=== PATIENT | male | born 1960 | race Caucasian/White ===

== ENCOUNTER 2017-09-14 12:58 | Observation (INO) ==
--- NOTE | 2017-09-14 13:48 | Emergency Department Note ---
Disposition Clinical Impression: Shortness of breath Chest pain Qualifiers: Chest pain type: unspecified Qualified Code(s): R07.9 - Chest pain, unspecified Disposition: Admitted As Inpatient Condition: Good Forms: ED Satisfaction Letter Time of Disposition: 15:23 General Adult HPI - General Chief complaint: ED Chest Pain Stated complaint: CP/SOB Time Seen by Provider: 09/14/17 13:04 Source: patient Limitations: no limitations Nursing Notes Reviewed: Yes Vital Signs Reviewed: Yes - History of Present Illness HPI Narrative: Patient is a 57-year-old male that presents to the emergency department with chest pain and shortness of breath. He states that this has been ongoing for the past couple months but has worsened over the past couple of days. He states that he feels like it is a pressure located over the center to left side of his chest that radiates into his left arm and neck and shoulder. He states that he has had some associated shortness of breath and diaphoresis. Denies any nausea. He states that his pain is approximately a 6 out of 10. Patient denies any home oxygen use. Patient states that he has never had anything like this before. Patient states that he just feels like he cannot catch his breath. Pain Scale: 6 - Related Data Home Medications Medication Instructions Recorded Confirmed Amlodipine Besylate [Amlodipine 10 mg PO DAILY 09/14/17 09/14/17 Besylate] Aspirin Enteric Coated [Aspirin EC] 81 mg PO DAILY 09/14/17 09/14/17 Lisinopril [Zestril] 40 mg PO DAILY 09/14/17 09/14/17 Metoprolol [Lopressor] 100 mg PO QAM 09/14/17 09/14/17 Metoprolol [Lopressor] 150 mg PO QPM 09/14/17 09/14/17 Pravastatin Sodium [Pravachol] 40 mg PO HS 09/14/17 09/14/17 Allergies Allergy/AdvReac Type Severity Reaction Status Date / Time No Known Allergies Allergy Verified 07/18/16 12:57 All systems ED: reviewed and negative except as stated. Cardiovascular: Reports: chest pain Respiratory: Reports: cough, dyspnea Past Medical History - Past Medical History Medical history: Reports: hyperlipidemia, hypertension, migraine Psychiatric history: Reports: no psych history - Social History Smoking Status: Current every day smoker Alcohol use: Reports: rarely Drug use: Reports: none Physical Exam - General Limitations: no limitations General appearance: alert, in no apparent distress - Head Head exam: atraumatic, normocephalic - Eye Eye exam: Present: normal appearance, EOMI - Neck Neck exam: Present: normal inspection, full ROM, trachea midline - Respiratory Respiratory exam: Present: normal lung sounds bilaterally. Absent: respiratory distress, wheezes - Cardiovascular Cardiovascular exam: Present: regular rate, irregular rhythm, normal heart sounds, +S1, +S2 - Abdominal Exam Abdominal exam: Present: soft, Non-Tender, normal bowel sounds - Neurological Exam Neurological exam: Present: alert, oriented X3 - Psychiatric Psychiatric exam: Present: normal affect, normal mood - Skin Skin exam: Present: warm, dry, intact Course Vital Signs Temperature 98.2 F 09/14/17 13:17 Pulse Rate 101 09/14/17 13:17 Respiratory Rate 18 09/14/17 13:17 Blood Pressure 133/106 09/14/17 13:17 O2 Sat by Pulse Oximetry 97 09/14/17 13:17 Temperature 98.2 F 09/14/17 13:17 Pulse Rate 101 09/14/17 13:17 Respiratory Rate 18 09/14/17 13:17 Blood Pressure 133/106 09/14/17 13:17 O2 Sat by Pulse Oximetry 96 09/14/17 14:04 Oxygen Delivery Oxygen Delivery Nasal Cannula Medical Decision Making - [facility] Narrative Medical decision making narrative: The patient having chest pain shortness of breath we will obtain a cardiac workup including CBC, BMP, BNP, troponin, chest x-ray and EKG. patient had an elevated BNP of 247. The remainder of his laboratory testing was unremarkable. His troponin was negative. His chest x-ray showed no acute cardiopulmonary process. Due to the patient having chest pain and risk factors for coronary artery disease the patient be admitted for ACS rule out. The patient has a heart score of 4. I have called and spoke to the hospitalist and they have accepted the patient to their service. The patient will be admitted to the hospital at this time for further evaluation and management. - Lab Data Lab results reviewed: Yes I reviewed the patient's lab results. Result diagrams: 09/14/17 13:35 09/14/17 13:35 Lab Results 09/14/17 09/14/17 09/14/17 Range/Units 13:35 13:35 13:35 WBC 9.6 (4.3-11.1) K/mcL RBC 4.48 (4.19-5.50) M/mcL Hgb 14.4 (12.9-16.9) g/dL Hct 43.7 (37.5-50.1) % MCV 97.5 (83.0-100.0) fL MCH 32.1 (28.0-33.3) pg MCHC 33.0 (31.6-35.5) g/dL RDW 13.6 (11.5-14.5) % Plt Count 210 (140-400) K/mcL MPV 9.3 L (9.4-12.4) fL Immature Gran % 0.3 (0-4) % Seg Neutrophils % 66.5 % Lymphocytes % 21.0 % Monocytes % 9.4 % Eosinophils % 2.5 % Basophils % 0.3 % Neutrophils # 6.4 (1.6-8.9) K/mcL Lymphocytes # 2.0 (0.6-4.6) K/mcL Monocytes # 0.9 (0.0-1.3) K/mcL Eosinophils # 0.2 (0.0-0.6) K/mcL Basophils # 0.0 (0.0-0.2) K/mcL Sodium 140 (136-145) mEq/L Potassium 4.4 (3.5-5.1) mEq/L Chloride 106 (98-107) mEq/L Carbon Dioxide 29 (23-29) mEq/L BUN 11 (6-20) mg/dL Creatinine 0.89 (0.70-1.30) mg/dL Est GFR ( Amer) > 60 (> 60) Est GFR (Non-Af Amer) > 60 (> 60) BUN/Creatinine Ratio 12 (6-26) Glucose 98 (70-105) mg/dL Calculated Osmolality 289 (280-300) Calcium 9.2 (8.6-10.3) mg/dL Troponin I (< 0.04) ng/mL B-Natriuretic Peptide 247 H (Less than 100) pg/mL 09/14/17 Range/Units 13:35 WBC (4.3-11.1) K/mcL RBC (4.19-5.50) M/mcL Hgb (12.9-16.9) g/dL Hct (37.5-50.1) % MCV (83.0-100.0) fL MCH (28.0-33.3) pg MCHC (31.6-35.5) g/dL RDW (11.5-14.5) % Plt Count (140-400) K/mcL MPV (9.4-12.4) fL Immature Gran % (0-4) % Seg Neutrophils % % Lymphocytes % % Monocytes % % Eosinophils % % Basophils % % Neutrophils # (1.6-8.9) K/mcL Lymphocytes # (0.6-4.6) K/mcL Monocytes # (0.0-1.3) K/mcL Eosinophils # (0.0-0.6) K/mcL Basophils # (0.0-0.2) K/mcL Sodium (136-145) mEq/L Potassium (3.5-5.1) mEq/L Chloride (98-107) mEq/L Carbon Dioxide (23-29) mEq/L BUN (6-20) mg/dL Creatinine (0.70-1.30) mg/dL Est GFR ( Amer) (> 60) Est GFR (Non-Af Amer) (> 60) BUN/Creatinine Ratio (6-26) Glucose (70-105) mg/dL Calculated Osmolality (280-300) Calcium (8.6-10.3) mg/dL Troponin I < 0.03 (< 0.04) ng/mL B-Natriuretic Peptide (Less than 100) pg/mL - Radiology Data Radiology results reviewed: Yes I reviewed the patient's radiology results. Chest X-Ray 09/14/17 13:21 IMPRESSION: No acute cardiopulmonary process. D/ / 09/14/2017 13:47:50 [facility]ung Howard [facility] Interpreting Provider: Trung Howard MD - EKG Data EKG #1 EKG attestation: Yes I reviewed and interpreted this EKG. EKG results narrative: EKG showed a lot of artifact making it difficult to determine the rhythm. 97 bpm, QRS duration of 102, QTC of 432 with a normal axis. There is no STEMI noted on this EKG. Previous EKG from 07/27/13 showed a sinus rhythm at 71 bpm. EKG will be repeated. EKG #2 EKG attestation: Yes I reviewed and interpreted this EKG. EKG results narrative: Second EKG at 1428 showed a sinus rhythm at a rate of 72 bpm, QRS duration at 127, QTC at 442 with a normal axis.
[2017-09-14 13:53] LABS: Basophils % 0.3 %; Eosinophils # 0.2 K/mcL (0.0-0.6); Eosinophils % 2.5 %; Hematocrit 43.7 % (37.5-50.1); Hemoglobin 14.4 g/dL (12.9-16.9); Immature Granulocytes % 0.3 % (0-4); Mean Corpuscular Hemoglobin 32.1 pg (28.0-33.3); Mean Corpuscular Volume 97.5 fL (83.0-100.0); Mean Platelet Volume 9.3 fL (9.4-12.4); Monocytes # 0.9 K/mcL (0.0-1.3); Monocytes % 9.4 %; Neutrophils # 6.4 K/mcL (1.6-8.9); Platelet Count 210 K/mcL (140-400); Red Blood Count 4.48 M/mcL (4.19-5.50); Red Cell Distribution Width 13.6 % (11.5-14.5); Segmented Neutrophils % 66.5 %
[2017-09-14 14:01] LABS: BUN/Creatinine Ratio 12 (6-26); Blood Urea Nitrogen 11 mg/dL (6-20); Calcium 9.2 mg/dL (8.6-10.3); Carbon Dioxide 29 mEq/L (23-29); Chloride 106 mEq/L (98-107); Glucose 98 mg/dL (70-105); Osmolality,Calculated 289 (280-300); Potassium 4.4 mEq/L (3.5-5.1); Sodium 140 mEq/L (136-145); eGFR For African Americans > 60 (> 60); eGFR For Non-African Americans > 60 (> 60)
--- NOTE | 2017-09-14 14:36 | Emergency Department Note ---
START Narrative - START START: I examined this patient and my medical decision-making was reviewed with the Resident Physician. I agree with the documented findings, disposition and treatment plan as described except to the extent set forth below. 57-year-old male presents emergency room for chest pressure. EKG is difficult to read but does appear to have a normal sinus rhythm with some questionable PACs present. There is no corresponding QRS complex to that. Labs are otherwise unremarkable. Patient need be admitted for further chest pain observation and workup. She has never had a cardiac catheter before. He had a stress test done around for 5 years ago.
[2017-09-14] MEDS ORDERED: *HR* Morphine 2 MG/ML SYRINGE IVP PRN (17:42)
[2017-09-14] MEDS ORDERED: Naloxone 0.4 MG/ML INJ IVP PRN (17:42)
--- NOTE | 2017-09-14 17:49 | Internal Med History&Physical ---
Date of Encounter: 09/14/17 Time of Encounter: 17:46 Assessment and Plan (1) Chest pain Current visit: Yes Status: Acute 57/male Multiple comorbid issues. Admitted with chest pain. FAUSTO: 3. Plan: Admit as observation. Aspirin/metoprolol/pravastatin Cardiac diet for now Nothing by mouth from midnight Cycle troponin Echocardiogram If 3 troponins negative and echocardiogram within normal limit then please consider stress test. Of note: I examined this patient in the emergency room #8. Patient's family at bedside. Plan of care explained to the patient and family members. Qualifiers: Chest pain type: unspecified Qualified Code(s): R07.9 - Chest pain, unspecified (2) Shortness of breath Current visit: Yes Status: Acute See above (3) Hypertension Current visit: Yes Status: Acute Presently on amlodipine/metoprolol. I have prescribed evening dose of metoprolol. Morning dose of metoprolol is on hold. Qualifiers: Hypertension type: essential hypertension Qualified Code(s): I10 - Essential (primary) hypertension (4) Hyperlipidemia Current visit: Yes Status: Acute Presently on medications for elevated lipids. We will recheck lipids tomorrow morning Qualifiers: Hyperlipidemia type: unspecified Qualified Code(s): E78.5 - Hyperlipidemia , unspecified (5) DVT prophylaxis Current visit: Yes Status: Acute SCD Critical decision making: This patient has a moderate to severe degree of risk due to the underlying complex medical conditions Internal Medicine - H&P: HPI Chief complaint: Chest pain Admitted From: Emergency Dept Plans for Post Hospital Care: Home History of present illness: PCP; DES Acosta PMH: HTN, Hyperlipidemia HPI: Patient claims that patient has this ongoing chest pain for past 2 months. But in the last 72 hours this chest pain was really worsened. Patient feels that there is a more of a chest pressure along with the chest pain. Patient also claims that the pain is retrosternal and it radiates to his jaw as well as the left shoulder. Patient has shortness of breath occasionally along with few times nausea with the chest pain. Patient denies abdominal pain, and vomiting, diarrhea and dizziness. In view of this worsening chest pain patient decided to come to the emergency room for further workup. Workup in the emergency room: Patient was evaluated in the emergency room. Basic labs were drawn. CBC was unremarkable. First troponin negative. Electrolytes and renal function were within the normal limit. EKG was within the acceptable range. Reason for admission: Chest pain to rule out acute coronary syndrome. Family history: Noncontributory Past Med Surg Social Fam HX - Past Medical History Medical history: hyperlipidemia, hypertension, migraine Psychiatric history: no psych history - Social History Smoking Status: Current every day smoker Packs per day: 0.5 Smokeless Tobacco Status: No Alcohol use: rarely Drug use: none - Family History Mother Family Member Ethnicity: Non- Age at : 53 Hx Family Cardiac Disorders: Yes Hx Family Endocrine Disorder: Yes Internal Medicine - H&P: Meds Amlodipine Besylate [Amlodipine Besylate] 10 mg PO DAILY 09/14/17 [History] Aspirin Enteric Coated [Aspirin EC] 81 mg PO DAILY 09/14/17 [History] Lisinopril [Zestril] 40 mg PO DAILY 09/14/17 [History] Metoprolol [Lopressor] 100 mg PO QAM 09/14/17 [History] Metoprolol [Lopressor] 150 mg PO QPM 09/14/17 [History] Pravastatin Sodium [Pravachol] 40 mg PO HS 09/14/17 [History] 3 Allergy/AdvReac Type Severity Reaction Status Date / Time No Known Allergies Allergy Verified 07/18/16 12:57 All Systems PM: A 10-system review of systems was performed and is negative for pertinent findings except as documented above in the HPI. - Constitutional Constitutional: no chills, no fever(s), no night sweats - EENT Eyes: no change in vision, no discharge, no pain, no photophobia Ears: no ear discharge, no ear pain, no tinnitus Nose, mouth and throat: no dysphagia, no nasal discharge, no neck pain, no sore throat - Cardiovascular Cardiovascular ROS IM: chest pain, lightheadedness, palpitations, no diaphoresis , no dyspnea, no syncope - Respiratory Respiratory: no cough, no dyspnea, no wheezing, no excessive phlegm production - Gastrointestinal Gastrointestinal: no abdominal pain, no diarrhea, no hematemesis, no hematochezia, no melena, no nausea, no vomiting - Musculoskeletal Musculoskeletal ROS IM: no numbness, no tingling - Integumentary Integumentary IM: no rash, no unusual bruising - Neurological Neurological ROS: no confusion, no convulsions, no focal weakness, no numbness, no tingling, no tremor(s) - Hematologic/Lymphatic Hematologic/Lymphatic: no easy bruising - Constitutional Vitals: Temp Pulse Resp BP Pulse Ox 98.2 F 89 20 114/67 95 09/14/17 17:05 09/14/17 17:05 09/14/17 17:05 09/14/17 17:05 09/14/17 17:05 General appearance: Present: A&O X 3, pleasant, no acute distress, answers questions appropriately - Head Head exam: Present: atraumatic, normocephalic - Eye Eye exam: Present: PERRL, conjuntiva pink, sclera anicteric Pupils: Present: PERRL - Neck Neck exam general surgery: Present: supple, trachea midline. Absent: lymphadenopathy - Respiratory Respiratory exam: Present: CTAB. Absent: accessory muscle use, rales, rhonchi, wheezes - Cardiovascular Cardiovascular exam: Present: RRR, +S1, +S2. Absent: diastolic murmur, gallop, rubs, systolic murmur - GI/Abdominal GI/Abdominal exam: Present: normal bowel sounds, soft, no peritoneal signs. Absent: distended, tenderness - Extremities Exam Extremities exam: Present: warm, radial pulses palpable and symmetrical. Absent : calf tenderness, cyanotic, pedal edema - Neurological Exam Neurological exam: Present: CN II-XII intact, oriented X3, no focal deficits. Absent: pronater drift, facial droop, speech deficit - Skin Skin exam: Present: dry, intact Internal Med - H&P Results - Labs CBC & Chem 7: 09/14/17 13:35 09/14/17 13:35
[2017-09-14] MEDS ORDERED: Metoprolol 100 MG TABLET PO SCH (18:00)
[2017-09-14] MEDS ORDERED: Albuterol 2.5 MG/3 ML NEBULIZER IH ONE (20:09)
[2017-09-15 00:25] LABS: Basophils % 0.3 %; Eosinophils # 0.3 K/mcL (0.0-0.6); Eosinophils % 2.9 %; Hematocrit 41.5 % (37.5-50.1); Hemoglobin 13.7 g/dL (12.9-16.9); Immature Granulocytes % 0.2 % (0-4); Lymphocytes # 2.7 K/mcL (0.6-4.6); Lymphocytes % 28.9 %; Mean Corpuscular Hemoglobin 32.3 pg (28.0-33.3); Mean Corpuscular Volume 97.9 fL (83.0-100.0); Monocytes % 10.5 %; Neutrophils # 5.3 K/mcL (1.6-8.9); Platelet Count 198 K/mcL (140-400); Red Blood Count 4.24 M/mcL (4.19-5.50); Red Cell Distribution Width 13.8 % (11.5-14.5); Segmented Neutrophils % 57.2 %
[2017-09-15 00:31] LABS: INR 1.1; Prothrombin Time 11.8 Seconds (9.4-12.1)
[2017-09-15 00:33] LABS: Activated Partial Thrombo Time 32.8 Seconds (26.0-36.0)
[2017-09-15 00:45] LABS: Alanine Aminotransferase 14 Units/L (7-52); Albumin 3.8 g/dL (3.5-5.7); Albumin/Globulin Ratio 1.2 (1.1-2.2); Alkaline Phosphatase 64 Units/L (34-104); Aspartate Amino Transferase 14 Units/L (13-39); BUN/Creatinine Ratio 18 (6-26); Bilirubin,Total 0.3 mg/dL (0.3-1.0); Blood Urea Nitrogen 17 mg/dL (6-20); Calcium 9.3 mg/dL (8.6-10.3); Carbon Dioxide 27 mEq/L (23-29); Chloride 104 mEq/L (98-107); Chol/HDL Ratio 4.8 (0-4.9); Cholesterol 174 mg/dL (< 200); Globulin 3.1 g/dL (2.4-3.5); Glucose 97 mg/dL (70-105); HDL Cholesterol 36 mg/dL (40-59); LDL Cholesterol,Calculated 99 mg/dL (0-99); Magnesium 1.9 mg/dL (1.6-2.6); Osmolality,Calculated 287 (280-300); Potassium 4.2 mEq/L (3.5-5.1); Sodium 138 mEq/L (136-145); Total Protein 6.9 g/dL (6.4-8.9); Triglycerides 193 mg/dL (< 150); eGFR For African Americans > 60 (> 60); eGFR For Non-African Americans > 60 (> 60)
[2017-09-15] MEDS ORDERED: Perflutren Lipid Microsphere 1.3 ML in 0.9 % Sodium Chloride 8.7 ML IVP ONE (07:32)
--- NOTE | 2017-09-15 07:39 | Electrocardiograph Report ---
[facility] Test Date: 2017-09-14 Pat Name: Aric Luz Department: 102 Room: Gender: M Porter Sample Case: : 1960 Requested By: Sánchez Higginbotham Order Number: [id number] Reading MD: Maryann Hair DO Measurements Intervals [place] Rate: 97 P: MS: 0 QRS: 17 QRSD: 102 T: 60 QT: 377 QTc: 432 Interpretive Statements ATRIAL FLUTTER/TACHYCARDIA NONSPECIFIC T-WAVE ABNORMALITY ABNORMAL RHYTHM ECG Electronically Signed On 09-15-2017 7:37:27 EST by Maryann Hair DO
--- NOTE | 2017-09-15 07:39 | Electrocardiograph Report ---
[place] [employer] [facility] Test Date: 2017-09-14 Pat Name: Aric Luz Department: 104 Room: Gender: M Computer Systems Security Administrator: : 1960 Requested By: Gerard Vanessa Order Number: [id number] Reading MD: Maryann Hair DO Measurements Intervals [place] Rate: 72 P: [place]: 0 QRS: 57 QRSD: 127 T: 22 QT: 417 QTc: 442 Interpretive Statements ATRIAL FLUTTER/TACHYCARDIA MODERATE INTRAVENTRICULAR CONDUCTION DELAY [110+ ms QRS DURATION] MINIMAL ST DEPRESSION [0.025+ mV ST DEPRESSION] ABNORMAL RHYTHM ECG Electronically Signed On 09-15-2017 7:38:19 EST by Maryann Hair DO
[2017-09-15] MEDS: Lisinopril 20 MG TABLET PO SCH (08:45)
[2017-09-15] MEDS: amLODIPine 5 MG TABLET PO SCH (08:45)
[2017-09-15] MEDS: Aspirin Enteric Coated 81 MG Tablet PO SCH (08:45)
[2017-09-15] MEDS ORDERED: Regadenoson 0.4 MG/5 ML SYRINGE IVP ONE (09:28)
[2017-09-15] MEDS: Metoprolol 100 MG TABLET PO SCH (09:44)
--- NOTE | 2017-09-15 18:23 | Internal Med Progress Note ---
Date of Encounter: 09/15/17 Time of Encounter: 12:05 - Assessment and plan (1) Nicotine use disorder Current Visit: Yes Status: Acute Assessment and plan: Patient reports that he is at least a one half pack per day smoker. We discussed smoking cessation. We will continue to educate and encourage smoking cessation prior to discharge. (2) Atrial fibrillation Current Visit: Yes Status: Acute Assessment and plan: Psoas prior history of atrial fibrillation. Rate controlled with beta alva. He was mildly tachycardic this morning his beta alva was held last night due to hypotension and bradycardia. This morning he was not rate controlled. It was given and he was taken to stress test. Continue telemetry and continue to monitor pulse. He denied any chest pain. Qualifiers: Atrial fibrillation type: paroxysmal Qualified Code(s): I48.0 - Paroxysmal atrial fibrillation (3) Chest pain Current Visit: Yes Status: Acute Assessment and plan: Patient reports chest pain for the last 2 months, worse for approximately 72 hours prior to arrival. Patient with prior history of paroxysmal A. fib on a beta alva. He takes an aspirin as well as a statin. Patient reports that he is always short of breath prior to the onset of chest pain. 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 He reports the sensation as feeling like a "ball bat to the chest." Patient does have wheezing in posterior lung corrales. The pain is not reproducible with deep inspiration or palpation. He does not have dyspnea on exertion. Echocardiogram shows LVEF of 60%, Definity contrast was used due to body habitus there is no significant valvular dysfunction. Patient's chest x- ray was negative. Troponins were negative. Continue telemetry Stress test will be completed tomorrow. Nitroglycerin aspirin for chest pain. Consider cardiology consult based on results of test. Qualifiers: Chest pain type: unspecified Qualified Code(s): R07.9 - Chest pain, unspecified (4) Shortness of breath Current Visit: Yes Status: Acute Assessment and plan: See above. (5) Hypertension Current Visit: Yes Status: Acute Assessment and plan: Chronic. Well controlled in the hospital. Continue home medications. Qualifiers: Hypertension type: essential hypertension Qualified Code(s): I10 - Essential (primary) hypertension (6) Hyperlipidemia Current Visit: Yes Status: Acute Assessment and plan: Chronic. Continue home medications. Qualifiers: Hyperlipidemia type: unspecified Qualified Code(s): E78.5 - Hyperlipidemia , unspecified (7) DVT prophylaxis Current Visit: Yes Status: Acute Assessment and plan: Patient is ambulatory. Encourage early ambulation. - Time Spent With Patient less than 15 minutes - Subjective Interval history: Patient was seen and assessed at bedside at 1205. Multiple family members at bedside. Patient reports that his chest pain feels like someone "took a ball bat to his chest." He reports shortness of breath. Onset 2 months ago, worse Thursday night. Patient reports shortness of breath which causes chest pain. He reiterates that shortness of breath is always before the chest pain. He is a smoker. We have discussed smoking cessation. He is a 2 day stress test and is aware that he will not be completed until tomorrow. He denies any headache, nausea, vomiting, chest pain at this time. He denies abdominal pain, nausea vomiting or diarrhea. - Constitutional Vitals: Temp Pulse Resp BP Pulse Ox 98.4 F 80 20 108/74 96 09/15/17 15:17 09/15/17 15:17 09/15/17 15:17 09/15/17 15:17 09/15/17 15:17 General appearance: Present: cooperative, A&O X 3, morbidly obese, pleasant, no acute distress, answers questions appropriately. Absent: mild distress - Head Head exam: Present: atraumatic, normal inspection, normocephalic - Eye Eye exam: Present: normal appearance, conjuntiva pink, sclera anicteric - Neck Neck exam general surgery: Present: supple, trachea midline. Absent: lymphadenopathy, normal inspection, tenderness - Respiratory Respiratory exam: Present: decreased breath sounds, wheezes. Absent: accessory muscle use, chest wall tenderness, CTAB, rales, rhonchi - Cardiovascular Cardiovascular exam: Present: RRR, +S1, +S2. Absent: diastolic murmur, gallop, rubs, systolic murmur - GI/Abdominal GI/Abdominal exam: Present: normal bowel sounds, soft. Absent: distended, hepatomegaly, tenderness - Extremities Exam Extremities exam: Present: normal capillary refill, normal inspection, warm, radial pulses palpable and symmetrical. Absent: calf tenderness, cyanotic, pedal edema, tenderness - Neurological Exam Neurological exam: Present: alert, oriented X3, no focal deficits. Absent: facial droop, speech deficit - Skin Skin exam: Present: dry, intact, normal color, warm. Absent: rash Internal Medicine: Result - Labs CBC & Chem 7: 09/15/17 00:18 09/15/17 00:18 Labs: Short CBC 09/15/17 Range/Units 00:18 WBC 9.3 (4.3-11.1) K/mcL Hgb 13.7 (12.9-16.9) g/dL Hct 41.5 (37.5-50.1) % Plt Count 198 (140-400) K/mcL Neutrophils # 5.3 (1.6-8.9) K/mcL BMP 09/15/17 00:18 Sodium 138 Potassium 4.2 Chloride 104 Carbon Dioxide 27 BUN 17 Creatinine 0.95 Glucose 97 Calcium 9.3 Cardiac Enzymes 09/14/17 09/15/17 09/15/17 Range/Units 18:10 00:18 05:16 Troponin I < 0.03 < 0.03 < 0.03 (< 0.04) ng/mL Liver Function 09/15/17 Range/Units 00:18 Total Bilirubin 0.3 (0.3-1.0) mg/dL AST 14 (13-39) Units/L ALT 14 (7-52) Units/L Alkaline Phosphatase 64 (34-104) Units/L Albumin 3.8 (3.5-5.7) g/dL - ABG Interpretation ABG results: PT/INR, D-dimer PT 11.8 Seconds (9.4-12.1) 09/15/17 00:18 - Impressions Impressions Echocardiogram 09/15/17 17:44 Impressions: LVEF 60%. Indeterminate diastolic function. Definity echo contrast was used. Dilated RV with normal function. No significant valvular dysfunction. No pulmonary hypertension. Left Ventricular Wall Motion: Rest Echo Findings All wall segments showed normal motion. Findings: Study Quality * Technically sub-optimal due to body habitus. ECG Findings * Atrial fibrillation. Left Ventricle * LVEF 60%. * Indeterminate diastolic function. * Definity echo contrast was used. * Normal LV size. * Wall thickness measurements could not be well obtained. Right Ventricle * Dilated RV with normal function. Left Atrium * Mildly dilated left atrium. Right Atrium * Right atrium is not well visualized. Aortic Valve * No aortic regurgitation. * No aortic stenosis. * Aortic valve not well visualized. Mitral Valve * No mitral regurgitation. * Normal mitral valve structure. * No mitral stenosis. Tricuspid Valve * Tricuspid valve not well visualized. * Trace tricuspid regurgitation. * Estimated RA pressure is 3 mmHg. * Estimated RVSP is 10 mmHg. * No pulmonary hypertension. Pulmonic Valve * Pulmonic valve is not well visualized. * No pulmonic stenosis. * No pulmonic regurgitation. Pulmonary Artery * Pulmonary artery not well visualized. Aorta * Normally sized aortic root. * Ascending aorta is not well visualized. Pericardium * There is no pericardial effusion present. Interatrial Septum * No evidence of PFO by color Doppler. IVC * Normal IVC dimensions and inspiratory collapse. Consult Discharge Plan - Plan Referrals: Zhanna Hennessy CNP [Primary Care Provider] -
[2017-09-16] MEDS: Aspirin Enteric Coated 81 MG Tablet PO SCH (09:05)
[2017-09-16] MEDS: Lisinopril 20 MG TABLET PO SCH (09:05)
[2017-09-16] MEDS: Metoprolol 100 MG TABLET PO SCH (09:05)
[2017-09-16] MEDS: amLODIPine 5 MG TABLET PO SCH (09:05)
--- NOTE | 2017-09-16 15:04 | Cardiology Consult Note ---
Date of Encounter: 09/16/17 Time of Encounter: 15:05 Assessment and Plan (1) Chest pain Current Visit: Yes Status: Acute Symptoms correlate most likely with his stable angina. However, patient is currently having dyspnea and chest pain while at rest. This is concerning for the development of unstable angina. Troponins are within normal limits, electrocardiogram does not reveal any new ischemic changes. Chest x-ray does not reveal any abnormalities. BNP was mildly elevated, but echo reveals ejection fraction of 60% without any wall motion abnormalities. Stress test reveals inferior wall ischemia. Plan for heart catheterization tomorrow morning. Patient and were agreeable with the plan. Qualifiers: Chest pain type: unspecified Qualified Code(s): R07.9 - Chest pain, unspecified Discussion w patient/family: The assessment and plan as outlined above was discussed with the patient and/or family members who expressed understanding and agreement. All questions were answered. Thank you for involving us in the care of your patient. Please call with any questions. History of Present Illness Consult date: 09/16/17 Requesting physician: Carolina Anderson Consult reason: abnormal stress test Chief complaint: chest pain History of present illness: Mr. Luz is a 57 year old male past medical history of hyperlipidemia, hypertension, smoking who we were consulted on secondary to an abnormal stress test. Patient states that he has been having worsening shortness of breath and chest pain on exertion over the last few months. Patient states that over the weekend he was presents no office vehicle and experienced severe episode of dyspnea and chest pain. Patient states that he feels as if there was a constant pressure and tightness radiating across his chest. Patient stated that the episodes take about 5-10 minutes to resolve. On Thursday, patient was complaining of having the same type of chest pain while at rest. Patient has not experienced any chest pain since. Past Med Surg Social Fam HX - Past Medical History Medical history: hyperlipidemia, hypertension, migraine Psychiatric history: no psych history - Social History Smoking Status: Current every day smoker Packs per day: 0.5 Smokeless Tobacco Status: No Alcohol use: rarely Drug use: none - Family History Mother Family Member Ethnicity: Non- Age at : 53 Hx Family Cardiac Disorders: Yes Hx Family Endocrine Disorder: Yes Medications and Allergies Amlodipine Besylate [Amlodipine Besylate] 10 mg PO DAILY 09/14/17 [History] Aspirin Enteric Coated [Aspirin EC] 81 mg PO DAILY 09/14/17 [History] Lisinopril [Zestril] 40 mg PO DAILY 09/14/17 [History] Metoprolol [Lopressor] 100 mg PO QAM 09/14/17 [History] Metoprolol [Lopressor] 150 mg PO QPM 09/14/17 [History] Pravastatin Sodium [Pravachol] 40 mg PO HS 09/14/17 [History] 3 Allergy/AdvReac Type Severity Reaction Status Date / Time No Known Allergies Allergy Verified 07/18/16 12:57 All Systems Review: A 10-system review of systems was performed and is negative for pertinent findings except as documented above in the HPI. - Cardiovascular Cardiovascular: chest pain at rest, chest pain with exertion, dyspnea at rest, dyspnea on exertion, no syncope - Respiratory Respiratory: no cough, no dyspnea, no hemoptysis - Gastrointestinal Gastrointestinal: no abdominal pain Physical Examination Vital Signs, Last 4 Hours Temp Pulse Resp BP Pulse Ox 09/16/17 11:39 117/75 09/16/17 11:25 97.5 F L 70 16 92/48 96 General: Conversant, No Apparent Distress HEENT: Atraumatic, Normocephaly Neck: No JVD Cardiac: Normal S1 and S2, Other (regular rate) Lungs: Normal Breath Sounds, No Wheeze, Rales, Rhonchi Neuro: Alert and responsive, No focal deficits noted Abdomen: Soft, Non-Tender Skin: No rashes noted on visualized skin Musculoskeletal: No Chest Wall Tenderness Extremities: No Edema, Normal Pulses Results 09/15/17 00:18 09/15/17 00:18 Consult Discharge Plan - Plan Referrals: Zhanna Hennessy CNP [Primary Care Provider] - 09/17/17 1:15 pm
[2017-09-16] MEDS ORDERED: Verapamil 5 MG/2 ML VIAL ONE (15:56)
[2017-09-16] MEDS ORDERED: *HR* Heparin 10,000 UNIT/10 ML VIAL ONE (15:57)
[2017-09-16] MEDS ORDERED: 0.9 % Sodium Chloride 1,000 ML ONE (15:57)
[2017-09-16] MEDS ORDERED: Nitroglycerin 1,000 MCG/10 ML VIAL IV ONE (15:57)
[2017-09-16] MEDS ORDERED: Heparin 1,000 UNITS/500 mL 0 ML ONE (15:57)
--- NOTE | 2017-09-16 16:21 | Internal Med Progress Note ---
Date of Encounter: 09/16/17 Time of Encounter: 08:50 - Assessment and plan (1) Nicotine use disorder Current Visit: Yes Status: Acute Assessment and plan: Patient reports that he is at least a one half pack per day smoker. We discussed smoking cessation. I have continued to educate and encourage smoking cessation prior to discharge. Patient is reluctant to try patches and gum. He reports prior suicidal ideations with Chantix. States he has not tried Wellbutrin, we will discuss tomorrow after LHC and prior to discharge. (2) Atrial fibrillation Current Visit: Yes Status: Acute Assessment and plan: prior history of atrial fibrillation. Rate controlled with beta alva. He denied any chest pain. Qualifiers: Atrial fibrillation type: paroxysmal Qualified Code(s): I48.0 - Paroxysmal atrial fibrillation (3) Chest pain Current Visit: Yes Status: Acute Assessment and plan: Patient reports chest pain for the last 2 months, worse for approximately 72 hours prior to arrival. Patient with prior history of paroxysmal A. fib on a beta alva. He takes an aspirin as well as a statin. Patient reports that he is always short of breath prior to the onset of chest pain. 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 He reports the sensation as feeling like a "ball bat to the chest." Lungs are clear and diminished. The pain is not reproducible with deep inspiration or palpation. He does not have dyspnea on exertion. Echocardiogram shows LVEF of 60%, Definity contrast was used due to body habitus there is no significant valvular dysfunction. Patient's chest x-ray was negative. Troponins were negative. Patient with 2 day stress test showed possible mild ischemia in the inferior wall with a gated EF of 60%. Cardiology was consult dated, patient will have C in the morning. Continue telemetry Nitroglycerin aspirin for chest pain. I will hCG tomorrow Qualifiers: Chest pain type: unspecified Qualified Code(s): R07.9 - Chest pain, unspecified (4) Shortness of breath Current Visit: Yes Status: Acute Assessment and plan: Plan as above. (5) Hypertension Current Visit: Yes Status: Acute Assessment and plan: Chronic. Well controlled in the hospital. Continue home medications. Qualifiers: Hypertension type: essential hypertension Qualified Code(s): I10 - Essential (primary) hypertension (6) Hyperlipidemia Current Visit: Yes Status: Acute Assessment and plan: Chronic. Continue home medications. Triglycerides mildly elevated. Implement lifestyle changes. Qualifiers: Hyperlipidemia type: unspecified Qualified Code(s): E78.5 - Hyperlipidemia , unspecified (7) DVT prophylaxis Current Visit: Yes Status: Acute Assessment and plan: Patient is ambulatory. Encourage early ambulation. - Time Spent With Patient less than 15 minutes - Subjective Interval history: Patient was seen and assessed at bedside at 0850. He denies any headache, nausea, vomiting, chest pain at this time. He denies abdominal pain, nausea vomiting or diarrhea. Patient is aware of abnormal stress test, he has been seen by cardiology and will have LH see tomorrow. Multiple questions have been answered. is at bedside. He denies a chest pain at all since arrival. - Constitutional Vitals: Temp Pulse Resp BP Pulse Ox 97.3 F L 71 18 115/75 94 09/16/17 15:54 09/16/17 15:54 09/16/17 15:54 09/16/17 15:54 09/16/17 15:54 General appearance: Present: cooperative, A&O X 3, morbidly obese, pleasant, no acute distress, answers questions appropriately. Absent: mild distress - Head Head exam: Present: atraumatic, normal inspection, normocephalic - Eye Eye exam: Present: normal appearance, conjuntiva pink, sclera anicteric - Neck Neck exam general surgery: Present: supple, trachea midline. Absent: lymphadenopathy - Respiratory Respiratory exam: Present: decreased breath sounds, CTAB. Absent: accessory muscle use, chest wall tenderness, rales, respiratory distress, rhonchi, wheezes - Cardiovascular Cardiovascular exam: Present: RRR, +S1, +S2. Absent: diastolic murmur, gallop, rubs, systolic murmur - GI/Abdominal GI/Abdominal exam: Present: normal bowel sounds, soft, no peritoneal signs. Absent: distended, hepatomegaly, tenderness - Extremities Exam Extremities exam: Present: normal capillary refill, normal inspection, warm, radial pulses palpable and symmetrical. Absent: calf tenderness, cyanotic, pedal edema, tenderness - Neurological Exam Neurological exam: Present: alert, oriented X3, no focal deficits. Absent: altered, facial droop, speech deficit - Skin Skin exam: Present: dry, intact, normal color, warm. Absent: rash Internal Medicine: Result - Labs CBC & Chem 7: 09/15/17 00:18 09/15/17 00:18 - ABG Interpretation ABG results: PT/INR, D-dimer PT 11.8 Seconds (9.4-12.1) 09/15/17 00:18 Consult Discharge Plan - Plan Referrals: Zhanna Hennessy CNP [Primary Care Provider] - 09/17/17 1:15 pm
[2017-09-17] MEDS ORDERED: 0.9 % Sodium Chloride 1,000 ML ONE ×2 (08:27→08:56)
[2017-09-17] MEDS ORDERED: Heparin 1,000 UNITS/500 mL 500 ML ONE (08:28)
[2017-09-17] MEDS ORDERED: *HR* Heparin 10,000 UNIT/10 ML VIAL ONE (08:28)
[2017-09-17] MEDS: Lisinopril 20 MG TABLET PO SCH (08:28)
[2017-09-17] MEDS: Aspirin Enteric Coated 81 MG Tablet PO SCH (08:28)
[2017-09-17] MEDS: Metoprolol 100 MG TABLET PO SCH (08:28)
[2017-09-17] MEDS ORDERED: Nitroglycerin 1,000 MCG/10 ML VIAL IV ONE (08:28)
[2017-09-17] MEDS: amLODIPine 5 MG TABLET PO SCH (08:28)
[2017-09-17] MEDS ORDERED: *HR* Midazolam HCl 5 MG/5 ML VIAL IVP ONE (08:56)
[2017-09-17] MEDS ORDERED: *HR* FentaNYL (PF) 100 MCG/2 ML VIAL ONE (08:56)
--- NOTE | 2017-09-17 09:22 | Pre-Sedation Evaluation ---
Pre-sedation evaluation - Pre-sedation checklist Date of procedure: 09/17/17 Procedure: [facility] Recent Vitals: Last Vital Signs Temp 98 F 09/17/17 07:29 Pulse 82 09/17/17 07:29 Resp 16 09/17/17 07:29 BP 120/80 09/17/17 07:29 Pulse Ox 94 09/17/17 07:29 H&P (including ROS) documented in medical record: Yes Previous reaction to sedatives/anesthetics: No Dietary Status: NPO after Midnight Airway Assessment: Patient can open mouth completely, TMJ function normal Dentition: No loose teeth or bridges Possible difficult airway: No ASA Classification *see protocol: CLASS IV-Severe systemic disease/constant threat to pt's life Plan of Care: Pt appropriate candidate for procedure/moderate/conscious sedation , Risks/benefits of procedure/sedation discussed w/ patient/family, If not NPO; Risk of intake outweiged by necessity to perform procedure
--- NOTE | 2017-09-17 09:55 | Event Note ---
Date of Encounter: 09/17/17 Time of Encounter: 09:50 - Cardiology Event Note Interventional Cardiology [facility] - trivial CAD, smaller LAD, larger OM1 and OM2, most likely cause of abnormal stress imaging, LV normaL EF 65% REC: risk factor modification, medical tx Taye Radford DO
--- NOTE | 2017-09-17 10:01 | Invasive Diagnostic Lab Proc ---
Name: Aric Luz Date of Study: 09/17/2017 Date: 1960 Ht: 72.8in Medical Record#: [id number] Age: 57 Wt: 335.10lb Gender: Male BSA: 2.68 Order #: [id number] BMI: 44.41 Physicians Procedure Physician: Aiden Cisneros MD, [facility] Referring MD: Referring MD: Staff Name Position Time In Virginia Rosales RN Monitor 09:02 AM Heri Ferraro RT (R) Scrub 09:03 AM Jules Ness RN Wired Music Operator 09:03 AM Indications Indication Abnormal Test - Stress Procedures Performed Procedure L HRT ARTERY/VENTRICLE ANGIO Pre-Procedure Checklist Informed consent is complete signed and on chart. H&P is on chart. ID band is on and ID verified with patient. Patient NPO for procedure The procedure was described for the patient and questions were answered. Blood Pressure: 117/75 ECG is on chart. Rhythm: NSR Plan of Care Patient will tolerate the procedure without complications. Adequate level of comfort will be maintained. Hemodynamics will remain stable Patient will recover from procedure without complications. Respiratory function will be maintained. Cardiac rhythm will remain stable. Patient temperature will be maintained. Patient and/or family have verbalized understanding of the procedure. Patient Education Chief Complaint/Reason for Test: Cardiac Cath Developmental Category: Adult (18-64 years) Developmentally Appropriate for Age: Yes Learning Barriers: None Education Needs: Procedure Education Method: Verbal Information Taught: Cardiac Cath Educational Evaluation: Able to repeat information Intravenous Access Time IV Size Location DC'd Fluid/Drip Rate Units RN 09:20 AM 20g 1 1/" Patent On Arrival Lt Antecubital 0.9NaCl 50 ml/hr Jules Ness RN Allergies No Known Allergies Vital Signs Time BP (mmHg) HR (bpm) O2 Sat. RR (bpm) LOC 07:43 AM 117 / 75 70 96 % 17 5 = Fully awake and oriented or at pre-proc level 09:14 AM / % 5 = Fully awake and oriented or at pre-proc level 09:14 AM / % 4 = Oriented but drowsy 09:30 AM / % 5 = Fully awake and oriented or at pre-proc level 09:15 AM 129 / 90 68 97 % 15 09:20 AM 131 / 80 69 97 % 21 09:25 AM 120 / 83 62 98 % 10 09:30 AM 125 / 85 65 99 % 9 09:35 AM 124 / 84 61 99 % 11 09:40 AM 123 / 84 64 97 % 20 09:45 AM 128 / 81 65 97 % 15 Procedural Medications Time Medication Dose Units Method Given By 09:09 AM Oxygen 2 L/min nasal cannula Jules Ness RN 09:14 AM Versed 2 mg Intravenous Jules Ness RN 09:33 AM Lidocaine 2% 10 ml Subcutaneous Aiden Cisneros MD, [facility] ASA Classification: CLASS IV- Severe systemic that is constant threat to patient's life Sebastián Score Preprocedure Postprocedure Activity 2- Moves 4 extremities sustained head lift Activity 2- Moves 4 extremities sustained head lift Circulation 2- SBP +/= 20 points of pre-anesthetic level Circulation 2- SBP +/= 20 points of pre-anesthetic level Consciousness 2- Awake and alert oriented x 3 Consciousness 2- Awake and alert oriented x 3 O2 Saturation 2- Able to maintain O2 satruation of 92% on room air O2 Saturation 2- Able to maintain O2 satruation of 92% on room air Respiratory 2- Able to deep breathe and cough well Respiratory 2- Able to deep breathe and cough well Total Score 10 Total Score 10 Contrast Agent: Isovue Diagnostic Contrast: 75 ml Total Contrast: 75 ml Fluoro Dose: 310 mGy Procedure Log Time Note Enter By 09:02 AM Pt arrived to bobcat driver/labor 2 at 09:02 mmolvin 09:02 AM Virginia Rosales RN Position: Monitor Time in: 09:02 angela 09:03 AM Heri Ferraro RT (R) Position: Scrub Time in: 09:03 angela 09:03 AM Jules Ness RN Position: Wired Music Operator Time in: 09:03 angela 09:03 AM Case Delayed No mm 09:05 AM Gautam paged/called 09:05. [email or web address] 09:05 AM Gautam responded and notified patient is ready 09:05 [email or web address] 09:09 AM Physician arrived 09:09 angela 09:09 AM Procedure start 09:09 mmolvin 09:09 AM Meet and greet completed mm 09:09 AM Sign in performed according to hospital policy. [email or web address] AM Patient charges- Angio tray pack, Navilyst 3mm J, Pulse Oximetry and ACIST tubing and transducer [facility] 09[facility]10 AM Time: 09:09 Oxygen on at 2 L/min per nasal cannula by Jules Ness RN 09:10 AM CathStat 09:10 AM Case Start 09:14 AM Time: 09:14 Versed 2 mg Intravenous Given by Jules Ness RN 09:14 AM Time: 09:14 Patient comfortable and pain free: Yes elizabeth 09:14 AM Time: 09:14LOC: 5 = Fully awake and oriented or at pre-proc level [email or web address] 09:15 AM Clinical Presentation: Unstable angina [facility] 09:15 AM Vitals capture started with the following parameters, Patient=Adult, Interval=5 min, Initial Frslzrpc=382 mmHg, Deflation Rate=5 mmHg, Cuff placed on Left Arm 09:15 AM HR=68 bpm, KTSM=814/90 mmhg, SpO2=97.0 %, Resp=15 B/min, Comment=SR 09:16 AM Recorded ECG: HR=67 Condition=Condition 1 09:20 AM HR=69 bpm, GRPL=068/80 mmhg, SpO2=97.0 %, Resp=21 B/min, Comment=SR 09:22 AM Pressure channel 1 zeroed. 09:25 AM HR=62 bpm, BEIS=081/83 mmhg, SpO2=98.0 %, Resp=10 B/min, Comment=SR 09:30 AM Time: 09:14LOC: 4 = Oriented but drowsy elizabeth 09:30 AM Time: 09:14 Patient comfortable and pain free: Yes [facility] 09:30 AM HR=65 bpm, OMIE=173/85 mmhg, SpO2=99.0 %, Resp=9 B/min, Comment=SR 09:33 AM Time out performed according to hospital policy [facility] 09:33 AM Time: 09:33 10 ml Lidocaine 2% to right groin Subcutaneous Given by Aiden Cisneros MD, [facility] mm 09:34 AM Micro-Introducer Kit utilized for sheath placement tsolvin 09:35 AM HR=61 bpm, DDHP=679/84 mmhg, SpO2=99.0 %, Resp=11 B/min, Comment=SR 09:37 AM Access obtained by percutaneous puncture. 6Fr 10cm Terumo [place] sheath placed in right Femoral artery. [id number] mm 09:37 AM 0.035 145cm Navilyst 3mmJ wire [id number] 09:37 AM 6Fr FR 4 catheter inserted over the wire [facility] 09:37 AM Catheter selectively placed in left ventricle tsoumm 09:37 AM Recorded Pressure: LV, HR=69, Condition=Condition 1 (Left Ventricle) LV 98/30/14 09:38 AM Recorded Pressure: LV, Ao, HR=78, Condition=Condition 1 (Left Ventricle) LV 97/-2/9, (Aorta) Ao 105/52/81 09:38 AM Recorded Pressure: Ao, HR=64, Condition=Condition 1 (Aorta) Ao 91/58/72 09:38 AM Bolus angiogram of left Ventricle complete: hand injection 09:38 AM RCA angiography performed in multiple views. 09:39 AM Catheter removed 09:39 AM 6Fr FL 4 catheter inserted over the wire [facility] 09:39 AM Wire removed 09:39 AM Recorded Pressure: Ao, HR=64, Condition=Condition 1 (Aorta) Ao 104/67/83 09:39 AM LCA angiography performed in multiple views. 09:40 AM HR=64 bpm, LMJM=501/84 mmhg, SpO2=97.0 %, Resp=20 B/min, Comment=SR 09:41 AM Catheter removed 09:41 AM Coronary Dominance: Co-dominant 09:42 AM Bolus angiogram of right Femoral complete: hand injection 09:43 AM Procedure completed at 09:43 [facility] 09:45 AM Time: 09:30 Patient comfortable and pain free: mm 09:45 AM Time: 09:30LOC: 5 = Fully awake and oriented or at pre-proc level tsoumm 09:45 AM Sign out completed: Radiation Dose 309.86 mGy Fluoro Time: 1.1 Isovue 370 - 200ml contrast 75 ml given by Aiden Cisneros MD, [facility]. Complications: NoneCardiac Rehab Consult needed: NoConfirmed administered medications: Yes mm 09:45 AM HR=65 bpm, GGAQ=935/81 mmhg, SpO2=97.0 %, Resp=15 B/min, Comment=SR 09:45 AM Isovue 370 - 200ml,1 Bottle(s) used. tsoummers 09:46 AM Arterial sheath pulled, Mynx closure device used and was Successful [id number] S/N. tsoummers 09:46 AM Estimated Blood Loss: minimal tsoummers 09:46 AM Post ECG NSR tsoummers 09:48 AM Post Blood Pressure 128/81 tsoummers 09:48 AM Information taught Cardiac Cath tsoummers 09:48 AM Education needs Procedure, Plan of Care, Responsibilities of Patient in Care, and Diet tsoummers 09:48 AM Learning barriers :None tsoummers 09:48 AM Education Methods Verbal oummers 09:48 AM Education evaluation Able to repeat information tsoummers 09:48 AM Site status No bleeding/hematoma - Rt Groin as reported by Heri Ferraro RT (R) at 09:48 tsoummers 09:48 AM Opsite applied tsoummers 09:48 AM Plavix, Effient or Brilinta given No tsoummers 09:48 AM Delay to floor No tsoummers 09:49 AM Family placed in consult room. [email or web address] 09:49 AM Complications: None tsoummers 09:49 AM Fluoro Time: 1.1 tsoummers 09:49 AM Isovue 370 - 200ml contrast 75 ml given by Aiden Cisneros MD, [facility]. tsoummers 09:49 AM Radiation Dose 309.86 mGy oummers 09:52 AM Report given to Mary Ellen HILARIO Pt taken to Room #48. 09:52 tsoummers 09:52 AM Patient out of room: 09:52 tsoummers 09:54 AM ASA Class CLASS IV- Severe systemic that is constant threat to patient's life tsoummers Complications Complication None Hemodynamics Pressures Site Systolic/A Wave Diastolic/V Wave Mean LV 98 30 14 LV 97 -2 9 AO 105 52 81 AO 91 58 72 AO 104 67 83 Post Procedure Information Blood Pressure: 128/81 mmHg Rhythm: NSR Post procedural instructions were given Closure Device Time Device Success/Fail 09/17/2017 9:46:00 AM MynxGrip Successful Site Checks Time Location Status Staff Sheath In? Note 09:48 AM Rt Groin No bleeding/hematoma Heri Ferraro RT (R) Pulses Time Site Pre-Procedure Post-Procedure Note 09/17/2017 7:42:00 AM Bilateral DP & PT 2+ 09/17/2017 7:42:00 AM Bilateral radial 2+ Updated by Virginia Rosales RN on 09/17/2017 9:55:40 AM electronically signed on 09/17/2017 9:56:23 AM with status of Final
--- NOTE | 2017-09-17 10:09 | Invasive Diagnostic Lab Proc ---
Name: Aric Luz Date of Study: 09/17/2017 Date: 1960 Ht: 72.8in Medical Record#: [id number] Age: 57 Wt: 335.10lb Gender: Male BSA: 2.68 Order #: [id number] BMI: 44.41 Physicians Procedure Physician: Taye Radford DO Referring MD: Referring MD: Staff Name Position Time In Virginia Rosales RN Monitor 09:02 AM Heri Ferraro RT (R) Scrub 09:03 AM Jules Ness RN Rn Hemodialysis 09:03 AM Indications Indication Abnormal Test - Stress Procedures Performed Procedure L HRT ARTERY/VENTRICLE ANGIO Pre-Procedure Checklist Informed consent is complete signed and on chart. H&P is on chart. ID band is on and ID verified with patient. Patient NPO for procedure The procedure was described for the patient and questions were answered. Blood Pressure: 117/75 ECG is on chart. Rhythm: NSR Plan of Care Patient will tolerate the procedure without complications. Adequate level of comfort will be maintained. Hemodynamics will remain stable Patient will recover from procedure without complications. Respiratory function will be maintained. Cardiac rhythm will remain stable. Patient temperature will be maintained. Patient and/or family have verbalized understanding of the procedure. Patient Education Chief Complaint/Reason for Test: Cardiac Cath Developmental Category: Adult (18-64 years) Developmentally Appropriate for Age: Yes Learning Barriers: None Education Needs: Procedure Education Method: Verbal Information Taught: Cardiac Cath Educational Evaluation: Able to repeat information Intravenous Access Time IV Size Location DC'd Fluid/Drip Rate Units RN 09:20 AM 20g 1 1/" Patent On Arrival Lt Antecubital 0.9NaCl 50 ml/hr Jules Ness RN Allergies No Known Allergies Vital Signs Time BP (mmHg) HR (bpm) O2 Sat. RR (bpm) LOC 07:43 AM 117 / 75 70 96 % 17 5 = Fully awake and oriented or at pre-proc level 09:14 AM / % 5 = Fully awake and oriented or at pre-proc level 09:14 AM / % 4 = Oriented but drowsy 09:30 AM / % 5 = Fully awake and oriented or at pre-proc level 09:15 AM 129 / 90 68 97 % 15 09:20 AM 131 / 80 69 97 % 21 09:25 AM 120 / 83 62 98 % 10 09:30 AM 125 / 85 65 99 % 9 09:35 AM 124 / 84 61 99 % 11 09:40 AM 123 / 84 64 97 % 20 09:45 AM 128 / 81 65 97 % 15 Procedural Medications Time Medication Dose Units Method Given By 09:09 AM Oxygen 2 L/min nasal cannula Jules Ness RN 09:14 AM Versed 2 mg Intravenous Jules Ness RN 09:33 AM Lidocaine 2% 10 ml Subcutaneous Prabhakar Taye 10:00 AM Versed 1 mg Intravenous Jules Ness RN ASA Classification: CLASS IV- Severe systemic that is constant threat to patient's life Sebastián Score Preprocedure Postprocedure Activity 2- Moves 4 extremities sustained head lift Activity 2- Moves 4 extremities sustained head lift Circulation 2- SBP +/= 20 points of pre-anesthetic level Circulation 2- SBP +/= 20 points of pre-anesthetic level Consciousness 2- Awake and alert oriented x 3 Consciousness 2- Awake and alert oriented x 3 O2 Saturation 2- Able to maintain O2 satruation of 92% on room air O2 Saturation 2- Able to maintain O2 satruation of 92% on room air Respiratory 2- Able to deep breathe and cough well Respiratory 2- Able to deep breathe and cough well Total Score 10 Total Score 10 Contrast Agent: Isovue Diagnostic Contrast: 75 ml Total Contrast: 75 ml Fluoro Dose: 310 mGy Procedure Log Time Note Enter By 09:02 AM Pt arrived to rd lab technician 2 at 09[email or web address] [facility] 09[facility]02 AM Virginia Rosales RN Position: Monitor Time in: 09:02 olvin 09:03 AM Heri Ferraro RT (R) Position: Scrub Time in: 09:03 mm 09:03 AM Jules Ness RN Position: Rn Hemodialysis Time in: 09:03 mmolvin 09:03 AM Case Delayed No oumm 09:05 AM Gautam paged/called 09:05. oumm 09:05 AM Gautam responded and notified patient is ready 09:05 oumm 09:09 AM Physician arrived 09:09 elizabeth 09:09 AM Procedure start 09:[address] [facility] 09[facility]09 AM Meet and greet completed 09:09 AM Sign in performed according to hospital policy. [email or web address] 09:09 AM Patient charges- Angio tray pack, Navilyst 3mm J, Pulse Oximetry and ACIST tubing and transducer [email or web address] 09:10 AM Time: 09:09 Oxygen on at 2 L/min per nasal cannula by Jules Ness RN 09:10 AM CathStat 09:10 AM Case Start 09:14 AM Time: 09:14 Versed 2 mg Intravenous Given by Jules Ness RN 09:14 AM Time: 09:14 Patient comfortable and pain free: Yes angela 09:14 AM Time: 09:14LOC: 5 = Fully awake and oriented or at pre-proc level ouelizabeth 09:15 AM Clinical Presentation: Unstable angina olvin 09:15 AM Vitals capture started with the following parameters, Patient=Adult, Interval=5 min, Initial Virrjpez=709 mmHg, Deflation Rate=5 mmHg, Cuff placed on Left Arm 09:15 AM HR=68 bpm, JMNG=064/90 mmhg, SpO2=97.0 %, Resp=15 B/min, Comment=SR 09:16 AM Recorded ECG: HR=67 Condition=Condition 1 09:20 AM HR=69 bpm, DCNH=274/80 mmhg, SpO2=97.0 %, Resp=21 B/min, Comment=SR 09:22 AM Pressure channel 1 zeroed. 09:25 AM HR=62 bpm, HRSZ=922/83 mmhg, SpO2=98.0 %, Resp=10 B/min, Comment=SR 09:30 AM Time: 09:14LOC: 4 = Oriented but drowsy angela 09:30 AM Time: 09:14 Patient comfortable and pain free: Yes elizabeth 09:30 AM HR=65 bpm, XKNZ=116/85 mmhg, SpO2=99.0 %, Resp=9 B/min, Comment=SR 09:33 AM Time out performed according to hospital policy olvin 09:33 AM Time: 09:33 10 ml Lidocaine 2% to right groin Subcutaneous Given by Taye Radford DO elizabeth 09:34 AM Micro-Introducer Kit utilized for sheath placement ouelizabeth 09:35 AM HR=61 bpm, ADCD=221/84 mmhg, SpO2=99.0 %, Resp=11 B/min, Comment=SR 09:37 AM Access obtained by percutaneous puncture. 6Fr 10cm Terumo [place] sheath placed in right Femoral artery. [id number] mm 09:37 AM 0.035 145cm Navilyst 3mmJ wire [id number] 09:37 AM 6Fr FR 4 catheter inserted over the wire [facility] 09:37 AM Catheter selectively placed in left ventricle [email or web address] 09:37 AM Recorded Pressure: LV, HR=69, Condition=Condition 1 (Left Ventricle) LV 98/30/14 09:38 AM Recorded Pressure: LV, Ao, HR=78, Condition=Condition 1 (Left Ventricle) LV 97/-2/9, (Aorta) Ao 105/52/81 09:38 AM Recorded Pressure: Ao, HR=64, Condition=Condition 1 (Aorta) Ao 91/58/72 09:38 AM Bolus angiogram of left Ventricle complete: hand injection mm 09:38 AM RCA angiography performed in multiple views. tsmm 09:39 AM Catheter removed 09:39 AM 6Fr FL 4 catheter inserted over the wire C mm 09:39 AM Wire removed 09:39 AM Recorded Pressure: Ao, HR=64, Condition=Condition 1 (Aorta) Ao 104/67/83 09:39 AM LCA angiography performed in multiple views. 09:40 AM Time: 09:40 Versed 1 mg Intravenous Given by Jules Ness RN [email or web address] 09:40 AM HR=64 bpm, GERG=265/84 mmhg, SpO2=97.0 %, Resp=20 B/min, Comment=SR 09:41 AM Catheter removed 09:41 AM Coronary Dominance: Co-dominant [email or web address] 09:42 AM Bolus angiogram of right Femoral complete: hand injection mmolvin 09:43 AM Procedure completed at 09:43 [facility] 09:45 AM Time: 09:30 Patient comfortable and pain free: mm 09:45 AM Time: 09:30LOC: 5 = Fully awake and oriented or at pre-proc level [email or web address] 09:45 AM Sign out completed: Radiation Dose 309.86 mGy Fluoro Time: 1.1 Isovue 370 - 200ml contrast 75 ml given by Aiden Cisneros MD, FACC. Complications: NoneCardiac Rehab Consult needed: NoConfirmed administered medications: Yes tsoummers 09:45 AM HR=65 bpm, RGMU=083/81 mmhg, SpO2=97.0 %, Resp=15 B/min, Comment=SR 09:45 AM Isovue 370 - 200ml,1 Bottle(s) used. tsoummers 09:46 AM Arterial sheath pulled, Mynx closure device used and was Successful [id number] S/N. tsoummers 09:46 AM Estimated Blood Loss: minimal tsoummers 09:46 AM Post ECG NSR tsoummers 09:48 AM Post Blood Pressure 128/81 tsoummers 09:48 AM Information taught Cardiac Cath tsoummers 09:48 AM Education needs Procedure, Plan of Care, Responsibilities of Patient in Care, and Diet tsoummers 09:48 AM Learning barriers :None tsoummers 09:48 AM Education Methods Verbal tsoummers 09:48 AM Education evaluation Able to repeat information tsoummers 09:48 AM Site status No bleeding/hematoma - Rt Groin as reported by Heri Ferraro RT (R) at 09:48 tsoummers 09:48 AM Opsite applied tsoummers 09:48 AM Plavix, Effient or Brilinta given No tsoummers 09:48 AM Delay to floor No tsoummers 09:49 AM Family placed in consult room. tsoummers 09:49 AM Complications: None tsoummers 09:49 AM Fluoro Time: 1.1 tsoummers 09:49 AM Isovue 370 - 200ml contrast 75 ml given by Aiden Cisneros MD, FACC. tsoummers 09:49 AM Radiation Dose 309.86 mGy tsoummers 09:52 AM Report given to Mary Ellen HILARIO Pt taken to 3B Room #48. 09:52 tsoummers 09:52 AM Patient out of room: 09:52 tsoummers 09:54 AM ASA Class CLASS IV- Severe systemic that is constant threat to patient's life tsoummers Complications Complication None Hemodynamics Pressures Site Systolic/A Wave Diastolic/V Wave Mean LV 98 30 14 LV 97 -2 9 AO 105 52 81 AO 91 58 72 AO 104 67 83 Post Procedure Information Blood Pressure: 128/81 mmHg Rhythm: NSR Post procedural instructions were given Closure Device Time Device Success/Fail 09/17/2017 9:46:00 AM MynxGrip Successful Site Checks Time Location Status Staff Sheath In? Note 09:48 AM Rt Groin No bleeding/hematoma Heri Ferraro RT (R) Pulses Time Site Pre-Procedure Post-Procedure Note 09/17/2017 7:42:00 AM Bilateral DP & PT 2+ 09/17/2017 7:42:00 AM Bilateral radial 2+ Updated by Virginia Rosales RN on 09/17/2017 10:03:48 AM electronically signed on 09/17/2017 10:05:38 AM with status of Final
--- NOTE | 2017-09-17 12:47 | Event Note ---
Date of Encounter: 09/17/17 Time of Encounter: 12:47 - Cardiology Event Note [facility] report normal coronaries, further details in Dr. Radford note below. Cardiology signing off. Reconsult PRN. No cardiology outpt follow-up is needed.
[2017-09-17 15:33] VITALS: BP 121/76
--- NOTE | 2017-09-17 16:19 | Discharge Summary ---
Date of Encounter: 09/17/17 Time of Encounter: 16:05 - Discharge Diagnosis (1) Chest pain Priority: Primary Status: Acute Comments: Patient reports chest pain for the last 2 months, worse for approximately 72 hours prior to arrival. Patient with prior history of paroxysmal A. fib on a beta alva. He takes an aspirin as well as a statin. Patient reports that he is always short of breath prior to the onset of chest pain. 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 He reports the sensation as feeling like a "ball bat to the chest." Lungs are clear and diminished. He denies any new cough, chest congestion, URI symptoms. The pain is not reproducible with deep inspiration or palpation. He does not have dyspnea on exertion. Echocardiogram shows LVEF of 60%, Definity contrast was used due to body habitus there is no significant valvular dysfunction. Patient's chest x-ray was negative. Troponins were negative. Patient with 2 day stress test showed possible mild ischemia in the inferior wall with a gated EF of 60%. Cardiology was consult dated, patient will have LHC in the morning. Patient had LHC today, coronary arteries are angiographically normal, LV normal with contract to the EF of 65%. Patient denies need for refills on his medications. He will continue his normal home medications including beta alva. I recommend the patient follow-up with his primary care provider as scheduled in 11 days. Recommend pulmonary function test as well as respiratory workup to assess for COPD. Chest pain occurs after shortness of breath. It is reasonable to assume that this is respiratory in nature. Qualifiers: Chest pain type: unspecified Qualified Code(s): R07.9 - Chest pain, unspecified (2) Nicotine use disorder Priority: Secondary Status: Acute Comments: Patient reports that he is at least a one half pack per day smoker. We discussed smoking cessation. I have continued to educate and encourage smoking cessation up to discharge. Patient is reluctant to try patches and gum. He reports prior suicidal ideations with Chantix. Denies need for nicotine replacement therapy at discharge. (3) Atrial fibrillation Priority: Secondary Status: Acute Comments: Paroxysmal A. fib. Rate control with beta alva. Patient denies chest pain since arrival. Qualifiers: Atrial fibrillation type: paroxysmal Qualified Code(s): I48.0 - Paroxysmal atrial fibrillation (4) Shortness of breath Priority: Secondary Status: Acute Comments: Plan as above for chest pain. (5) Hypertension Priority: Secondary Status: Acute Comments: Chronic. Continue home medications. Qualifiers: Hypertension type: essential hypertension Qualified Code(s): I10 - Essential (primary) hypertension (6) Hyperlipidemia Priority: Secondary Status: Acute Comments: Chronic. Continue home medications. Qualifiers: Hyperlipidemia type: unspecified Qualified Code(s): E78.5 - Hyperlipidemia , unspecified (7) DVT prophylaxis Priority: Secondary Status: Acute Comments: Patient was ambulatory in room and hallway. - Discharge Medications Home Medications: Amlodipine Besylate 10 mg PO DAILY 09/14/17 [History] Aspirin Enteric Coated [Aspirin EC] 81 mg PO DAILY 09/14/17 [History] Lisinopril [Zestril] 40 mg PO DAILY 09/14/17 [History] Metoprolol [Lopressor] 100 mg PO QAM 09/14/17 [History] Metoprolol [Lopressor] 150 mg PO QPM 09/14/17 [History] Pravastatin Sodium [Pravachol] 40 mg PO HS 09/14/17 [History] Allergies/Adverse Reactions: 3 Allergy/AdvReac Type Severity Reaction Status Date / Time No Known Allergies Allergy Verified 07/18/16 12:57 Procedures/tests Complete & Pending: Procedures Performed prior 72 hours Category Date Time Status Left Heart Cath [CL Cardiac Catheterization] [CL] [employer] 09/16/17 18:16 Completed Routine NM vicente perf SPECT multi [NM] Routine Exams 09/15/17 09:00 Taken EV echocardiogram w enhance Routine Y 09/15/17 17:44 Completed SP pharm nuclear stress Routine Y 09/15/17 08:55 Completed Date of admission: 09/14/17 16:24 Primary care physician: Zhanna Hennessy CNP Consults: 09/16/17 12:08 Consult to Cardiology [CONS] Routine Comment: Consulting Provider: Cardiology Giovana Reason for Consult: abnormal stress Time Notified: 12:08 Call Completed: Yes Discharging clinician: Carolina Anderson Anticipated date of discharge: 09/17/17 - Patient Status Disposition: Home, Self-Care Condition: Good - Discharge Instructions Instructions: Chest Pain (DC), How to Stop Smoking (DC), Cigarette Smoking and Your Health (GEN) Follow Up With: Zhanna Hennessy CNP [Primary Care Provider] - 09/28/17 9:00 am Forms: Inpatient Work/School Release Additional Instructions: RISK FACTORS: STOP SMOKING: If you smoke, STOP. Smoking or tobacco use significantly increases your risk of heart disease because nicotine causes the arteries to narrow or constrict. It also causes fats to stick to the artery. Your chances of having a heart attack are greatly increased if you continue to smoke. For more information, call the education line for smoking cessation 9-445-EDOCBFB EAT A LOW FAT/CHOLESTEROL/SODIUM DIET: This diet may help reduce your chances of having a heart attack. LIFTING: Avoid lifting anything more than 10 pounds for 5-7 days Prior to straining, laughing, sneezing and/or coughing, apply manual pressure directly over insertion site. ACTIVITY: You may walk or climb stairs as tolerated You can resume sexual activity as tolerated In general, you are encouraged to engage in a minimum of 30 minutes or more of moderate intensity physical activity, such as brisk walking, daily or at least 3 -4 times weekly BATHING Do not submerge the site into water (bath tub, hot tub, swimming pool) for 1 week. This can be a source for infection into the blood stream. You may shower after 24 hours SITE CARE: After 24 hours, you may remove the dressing and leave the site open to air. Keep the site clean and dry. Clean gently and pat dry. You can expect bruising and tenderness that gradually resolve within a week or two. Return to work as instructed per your physician Resume driving as instructed per physician Keep all scheduled follow up appointments Resume medications as instructed IMPORTANT: If prescribed a Platelet Aggregation Inhibitor such as, Plavix, Brilinta or Effient: Duration of therapy is minimum one year These medications are often used in combination with Aspirin in prevention of future heart attacks Never discontinue unless consult with your Deck Hand STROKE (CVA) Risk factors for a stroke are: Age, cigarette smoking, diabetes, excessive alcohol consumption, family history, high blood pressure, overweight, physical inactivity, prior stroke, heart attack, diagnosis of carotid artery stenosis or other artery disease. Warning signs: Sudden numbness or weakness of the face, arm or leg; especially on one side of the body, sudden confusion, trouble speaking or understanding, sudden trouble seeing in one or both eyes, sudden trouble walking, dizziness, loss of balance or coordination, sudden severe headache with no cause. Call 911 or go to the Emergency Room. CONGESTIVE HEART FAILURE: If you have been diagnosed with Congestive Heart Failure (CHF) and your symptoms return, make an appointment with your physician Weigh yourself daily. Notify your physician if you have a weight gain of two or more pounds in one day or five or more pounds in one week. If you experience any difficulty breathing, please call 911 BLEEDING: Although the risk of bleeding is minimal, it can happen. If you have any bleeding from the site, apply firm pressure above the puncture site for 10-15 minutes. If the bleeding does not stop, continue manual pressure and call 911 Contact your physician if: You develop a fever greater than 101 degrees Fahrenheit Your site becomes reddened or has any drainage You have an increase in pain or burning at the site or if a large knot forms at the site. If you experience chest pain, shortness of breath, dizziness, or extreme tiredness, stop the activity and rest. Please notify your physicians office if you experience any of these symptoms and they are not relieved by rest please call 911! - Diet and Activity Activity: increase activity as tolerated Diet: diabetic diet, low fat, low cholesterol, low salt diet Hospital course: Mr. Luz is a 57 year old male with past medical history of obesity, hypertension, paroxysmal atrial fibrillation, smoking, and hyperlipidemia. He presented to the emergency room with recent history of patient becoming shortness of breath and having chest pain. 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 His lungs are clear and diminished throughout. He denies any recent cough, congestion, fever or chills. Patient had a full cardiac workup that was negative including stress test that was negative. Most likely, source of chest pain is respiratory in nature. Patient had a lengthy discussion about smoking cessation, he states that he is prepared for lifestyle modifications including weight loss and smoking cessation. His labs are stable and within normal limits , vitals are stable and within normal limits. He is pain-free. He may return to work in 4 days, he has a follow-up appointment with primary care in 11 days. He denies any need for home medication refills. Patient is appropriate for discharge. Time spent discussing smoking cessation with patient: 3 to 10 minutes - Time Spent with Patient Total time spent providing and/or coordinating discharge services: Less than 30 minutes - Constitutional Vitals: Temp Pulse Resp BP Pulse Ox 98.9 F 79 20 121/76 95 09/17/17 15:32 09/17/17 15:32 09/17/17 15:32 09/17/17 15:32 09/17/17 15:32 General appearance: Present: cooperative, A&O X 3, morbidly obese, pleasant, no acute distress, answers questions appropriately. Absent: mild distress - Head Head exam: Present: atraumatic, normal inspection, normocephalic - Eye Eye exam: Present: normal appearance, conjuntiva pink, sclera anicteric - Neck Neck exam general surgery: Present: supple, trachea midline. Absent: lymphadenopathy, tenderness - Respiratory Respiratory exam: Present: decreased breath sounds, CTAB. Absent: accessory muscle use, chest wall tenderness, rales, respiratory distress, rhonchi, wheezes - Cardiovascular Cardiovascular exam: Present: RRR, +S1, +S2. Absent: diastolic murmur, gallop, rubs, systolic murmur - GI/Abdominal GI/Abdominal exam: Present: distended, normal bowel sounds, soft. Absent: hepatomegaly, tenderness Additional comments: Abdomen distended due to obesity. - Extremities Exam Extremities exam: Present: normal capillary refill, normal inspection, warm, radial pulses palpable and symmetrical. Absent: calf tenderness, cyanotic, pedal edema, tenderness - Neurological Exam Neurological exam: Present: alert, oriented X3, no focal deficits. Absent: altered, motor sensory deficit, facial droop, speech deficit - Skin Skin exam: Present: dry, intact, normal color, warm. Absent: rash
== END 2017-09-17 16:46 | disposition home or self-care (01) ==
LOC: EMEROO 12:58 → 3BNU 12:58
PROVIDERS: ADMIT Registered Nurse; ATTEND Registered Nurse

== ENCOUNTER 2021-07-06 12:17 | Inpatient (IN) ==
[2021-07-06] MEDS ORDERED: 0.9 % Sodium Chloride 1,000 ML IVC ONE (12:47)
[2021-07-06 13:38] LABS: Calcium 13.2 mg/dL (8.6-10.3)
[2021-07-06 14:52] LABS: Alanine Aminotransferase 27 Units/L (7-52); Albumin 3.3 g/dL (3.5-5.7); Albumin/Globulin Ratio 1.3 (1.1-2.2); Alkaline Phosphatase 645 Units/L (34-104); Aspartate Amino Transferase 38 Units/L (13-39); BUN/Creatinine Ratio 21 (6-26); Bilirubin,Total 1.3 mg/dL (0.3-1.0); Blood Urea Nitrogen 26 mg/dL (6-20); Carbon Dioxide 20 mEq/L (23-29); Chloride 98 mEq/L (98-107); Globulin 2.5 g/dL (2.4-3.5); Glucose 92 mg/dL (70-105); Osmolality,Calculated 274 (280-300); Potassium 4.8 mEq/L (3.5-5.1); Sodium 130 mEq/L (136-145); Total Protein 5.8 g/dL (6.4-8.9); Troponin I 0.03 ng/mL (< 0.04); eGFR For African Americans > 60 (> 60); eGFR For Non-African Americans 59 (> 60)
[2021-07-06 15:04] LABS: Bilirubin,Urine Negative (Negative); Blood,Urine Negative (Negative); Clarity,Urine Clear (Clear); Color,Urine Yellow (Yellow); Glucose,Urine (UA) Normal (Normal); Ketones,Urine Negative (Negative); Leukocyte Esterase,Urine Negative (Negative); Nitrite,Urine Negative (Negative); PH,Urine 5.5 pH Units (5.0-8.0); Protein,Urine Trace mg/dL (Neg-Trace); Specific Gravity,Urine 1.022 (1.010-1.025)
[2021-07-06 15:06] LABS: Hematocrit 28.9 % (37.5-50.1); Hemoglobin 8.5 g/dL (12.9-16.9); Mean Corpuscular Volume 91.7 fL (83.0-100.0); Red Blood Count 3.15 M/mcL (4.19-5.50); White Blood Count 9.9 K/mcL (4.3-11.1)
[2021-07-06 15:07] LABS: Basophils % 0.1 %; Eosinophils # 0.1 K/mcL (0.0-0.6); Eosinophils % 0.5 %; Immature Granulocytes % 0.9 % (0-4); Lymphocytes # 0.5 K/mcL (0.6-4.6); Lymphocytes % 5.1 %; Mean Corpuscular HGB Conc 29.4 g/dL (31.6-35.5); Mean Platelet Volume 9.3 fL (9.4-12.4); Monocytes # 0.9 K/mcL (0.0-1.3); Monocytes % 9.5 %; Neutrophils # 8.3 K/mcL (1.6-8.9); Platelet Count 219 K/mcL (140-400); Red Cell Distribution Width 15.9 % (11.5-14.5); Segmented Neutrophils % 83.9 %
[2021-07-06 15:22] LABS: INR 1.2; Prothrombin Time 13.4 Seconds (9.4-12.1)
[2021-07-06] MEDS ORDERED: Zoledronic Acid (Zometa) 4 MG in 0.9 % Sodium Chloride 100 ML IV ONE (16:30)
[2021-07-06] MEDS ORDERED: Calcitonin-Salmon, Synthetic 400 UNIT/2 ML VIAL IM ONE (16:30)
[2021-07-06] MEDS ORDERED: Ondansetron 4 MG/2 ML VIAL IVP PRN (16:44)
[2021-07-06] MEDS ORDERED: Acetaminophen 325 MG TABLET PO PRN (16:44)
[2021-07-06 17:03] LABS: Magnesium 1.6 mg/dL (1.6-2.6)
[2021-07-06] MEDS ORDERED: Naloxone 0.4 MG/ML INJ IVP PRN (17:56)
[2021-07-06] MEDS ORDERED: Ipratropium/Albuterol Neb 3 ML IH PRN (18:11)
[2021-07-06] MEDS ORDERED: Ondansetron ODT 4 MG TAB.RAPDIS PO PRN (18:37)
[2021-07-06] MEDS: *HR* OxyCODONE Immed Rel 15 MG TABLET PO PRN (20:23)
[2021-07-06 23:22] LABS: BUN/Creatinine Ratio 22 (6-26); Blood Urea Nitrogen 25 mg/dL (6-20); Calcium 12.2 mg/dL (8.6-10.3); Carbon Dioxide 21 mEq/L (23-29); Chloride 101 mEq/L (98-107); Glucose 88 mg/dL (70-105); Osmolality,Calculated 276 (280-300); Potassium 4.7 mEq/L (3.5-5.1); Sodium 131 mEq/L (136-145); eGFR For African Americans > 60 (> 60); eGFR For Non-African Americans > 60 (> 60)
[2021-07-07 04:39] LABS: Hemoglobin 8.4 g/dL (12.9-16.9); Mean Corpuscular Hemoglobin 27.2 pg (28.0-33.3); Mean Corpuscular Volume 93.9 fL (83.0-100.0); Mean Platelet Volume 9.1 fL (9.4-12.4); Platelet Count 207 K/mcL (140-400); Red Blood Count 3.09 M/mcL (4.19-5.50); White Blood Count 9.4 K/mcL (4.3-11.1)
[2021-07-07 04:56] LABS: BUN/Creatinine Ratio 22 (6-26); Blood Urea Nitrogen 28 mg/dL (6-20); Calcium 12.2 mg/dL (8.6-10.3); Carbon Dioxide 21 mEq/L (23-29); Chloride 101 mEq/L (98-107); Glucose 89 mg/dL (70-105); Osmolality,Calculated 279 (280-300); Potassium 4.9 mEq/L (3.5-5.1); Sodium 132 mEq/L (136-145); eGFR For African Americans > 60 (> 60); eGFR For Non-African Americans 57 (> 60)
[2021-07-07 04:57] LABS: Magnesium 1.7 mg/dL (1.6-2.6)
[2021-07-07] MEDS ORDERED: Calcitonin-Salmon, Synthetic 400 UNIT/2 ML VIAL IM SCH (06:00)
[2021-07-07] MEDS ORDERED: 0.9 % Sodium Chloride 1,000 ML IV ONE ×2 (07:14→18:33)
[2021-07-07] MEDS ORDERED: Ringers Solution, Lactated 1,000 ML IVC SCH (07:15)
[2021-07-07] MEDS: *HR* Rivaroxaban 10 MG TABLET PO SCH (08:22)
[2021-07-07] MEDS: DilTIAZem CD (24hr) 240 MG CAP.ER.24H PO SCH (08:22)
[2021-07-07] MEDS: *HR* OxyCODONE Immed Rel 15 MG TABLET PO PRN (08:22)
[2021-07-07] MEDS: Calcitonin-Salmon, Synthetic 400 UNIT/2 ML VIAL IM SCH ×2 (08:23→22:56)
[2021-07-07 19:16] LABS: Calcium 11.8 mg/dL (8.6-10.3); Potassium 4.6 mEq/L (3.5-5.1)
[2021-07-08 02:32] LABS: Basophils % 0.1 %; Eosinophils # 0.1 K/mcL (0.0-0.6); Hematocrit 25.9 % (37.5-50.1); Hemoglobin 7.7 g/dL (12.9-16.9); Immature Granulocytes % 0.9 % (0-4); Lymphocytes # 0.5 K/mcL (0.6-4.6); Lymphocytes % 6.3 %; Mean Corpuscular HGB Conc 29.7 g/dL (31.6-35.5); Mean Corpuscular Hemoglobin 27.6 pg (28.0-33.3); Mean Corpuscular Volume 92.8 fL (83.0-100.0); Mean Platelet Volume 9.4 fL (9.4-12.4); Monocytes # 0.9 K/mcL (0.0-1.3); Monocytes % 9.8 %; Neutrophils # 7.1 K/mcL (1.6-8.9); Platelet Count 207 K/mcL (140-400); Red Blood Count 2.79 M/mcL (4.19-5.50); Red Cell Distribution Width 16.2 % (11.5-14.5); Segmented Neutrophils % 81.9 %; White Blood Count 8.6 K/mcL (4.3-11.1)
[2021-07-08 02:50] LABS: Calcium 11.6 mg/dL (8.6-10.3); Potassium 4.7 mEq/L (3.5-5.1)
[2021-07-08] MEDS ORDERED: 0.9 % Sodium Chloride 1,000 ML IVC ONE ×2 (07:12→11:47)
[2021-07-08] MEDS: DilTIAZem CD (24hr) 240 MG CAP.ER.24H PO SCH (07:53)
[2021-07-08] MEDS: *HR* Rivaroxaban 10 MG TABLET PO SCH (07:53)
[2021-07-08] MEDS: polyethylene glycoL 3350 17 GM POWD.PACK PO SCH (11:38)
[2021-07-08] MEDS: Calcitonin-Salmon, Synthetic 400 UNIT/2 ML VIAL IM SCH ×2 (11:38→22:41)
[2021-07-08] MEDS: *HR* OxyCODONE Immed Rel 15 MG TABLET PO PRN (11:38)
[2021-07-08] MEDS: Sennosides/Docusate Sodium TABLET PO SCH ×2 (11:38→22:41)
[2021-07-08] MEDS ORDERED: Isovue-370 500 ML BOTTLE IVP ONE (11:50)
[2021-07-08] MEDS: Nicotine 7 MG PATCH.TD24 TD SCH (12:11)
[2021-07-08] MEDS ORDERED: *HR* OxyCODONE Immed Rel 15 MG TABLET PO PRN (13:49)
[2021-07-08 14:46] LABS: Uric Acid 12.6 mg/dL (2.3-7.6)
[2021-07-08] MEDS ORDERED: Glycerin RECTAL Suppository RC PRN (14:58)
[2021-07-08 16:11] LABS: Hepatitis B Surface Antigen Nonreactive (Nonreactive)
[2021-07-08 16:40] LABS: Hepatitis C Virus Antibody Nonreactive (Nonreactive)
[2021-07-08 16:41] LABS: Hepatitis B Core IgM Nonreactive (Nonreactive)
[2021-07-08 17:20] LABS: Sodium, Urine 21.5 mEq/L
[2021-07-08] MEDS ORDERED: Bisacodyl 10 MG RECTAL SUPPOSITORY RC ONE (17:38)
[2021-07-08 17:53] LABS: Hepatitis A Antibody IgM Nonreactive (Nonreactive)
[2021-07-08] MEDS ORDERED: Albumin 25% 25gram/100mL 25 GM/100 ML IV.SOLN IVPB ONE (21:29)
[2021-07-09 04:52] LABS: Hematocrit 26.2 % (37.5-50.1); Hemoglobin 7.7 g/dL (12.9-16.9); Mean Corpuscular HGB Conc 29.4 g/dL (31.6-35.5); Mean Corpuscular Hemoglobin 27.5 pg (28.0-33.3); Mean Corpuscular Volume 93.6 fL (83.0-100.0); Mean Platelet Volume 9.9 fL (9.4-12.4); Platelet Count 207 K/mcL (140-400); Red Cell Distribution Width 16.5 % (11.5-14.5); White Blood Count 8.6 K/mcL (4.3-11.1)
[2021-07-09 06:11] LABS: Albumin 3.2 g/dL (3.5-5.7); Calcium 11.2 mg/dL (8.6-10.3); Potassium 4.9 mEq/L (3.5-5.1)
[2021-07-09] MEDS: Sennosides/Docusate Sodium TABLET PO SCH ×2 (08:16→19:43)
[2021-07-09] MEDS: polyethylene glycoL 3350 17 GM POWD.PACK PO SCH (08:16)
[2021-07-09] MEDS: Nicotine 7 MG PATCH.TD24 TD SCH (08:17)
[2021-07-09] MEDS: *HR* OxyCODONE Immed Rel 15 MG TABLET PO PRN (08:18)
[2021-07-09] MEDS: DilTIAZem CD (24hr) 240 MG CAP.ER.24H PO SCH (08:20)
[2021-07-09] MEDS ORDERED: Calcitonin-Salmon, Synthetic 400 UNIT/2 ML VIAL IM SCH (10:15)
[2021-07-09] MEDS ORDERED: 0.9 % Sodium Chloride 1,000 ML IVC SCH (10:30)
[2021-07-09] MEDS: Calcitonin-Salmon, Synthetic 400 UNIT/2 ML VIAL IM SCH (11:30)
[2021-07-09 12:00] LABS: % Iron Saturation 7 % (20-55); Iron 22 mcg/dL (65-175); Transferrin 227 mg/dL (203-362)
[2021-07-09 12:19] LABS: Folate 3.8 ng/mL (3.0-16.0)
[2021-07-09] MEDS ORDERED: Furosemide 40 MG/4 ML VIAL IVP ONE (14:42)
[2021-07-09] MEDS: *HR* Rivaroxaban 10 MG TABLET PO SCH (16:32)
[2021-07-09 18:25] LABS: Ferritin 239 ng/mL (20-250)
[2021-07-10 05:10] LABS: Basophils % 0.2 %; Eosinophils # 0.1 K/mcL (0.0-0.6); Eosinophils % 0.9 %; Hematocrit 26.3 % (37.5-50.1); Hemoglobin 7.7 g/dL (12.9-16.9); Immature Granulocytes % 0.8 % (0-4); Lymphocytes # 0.5 K/mcL (0.6-4.6); Lymphocytes % 8.2 %; Mean Corpuscular HGB Conc 29.3 g/dL (31.6-35.5); Mean Corpuscular Hemoglobin 27.6 pg (28.0-33.3); Mean Corpuscular Volume 94.3 fL (83.0-100.0); Mean Platelet Volume 9.5 fL (9.4-12.4); Monocytes # 0.9 K/mcL (0.0-1.3); Monocytes % 13.5 %; Platelet Count 213 K/mcL (140-400); Red Blood Count 2.79 M/mcL (4.19-5.50); Red Cell Distribution Width 16.3 % (11.5-14.5); Segmented Neutrophils % 76.4 %; White Blood Count 6.6 K/mcL (4.3-11.1)
[2021-07-10 05:21] LABS: BUN/Creatinine Ratio 24 (6-26); Blood Urea Nitrogen 34 mg/dL (6-20); Calcium 10.6 mg/dL (8.6-10.3); Carbon Dioxide 20 mEq/L (23-29); Chloride 104 mEq/L (98-107); Glucose 81 mg/dL (70-105); Osmolality,Calculated 285 (280-300); Potassium 4.8 mEq/L (3.5-5.1); Sodium 134 mEq/L (136-145); eGFR For African Americans > 60 (> 60); eGFR For Non-African Americans 50 (> 60)
[2021-07-10] MEDS: *HR* OxyCODONE Immed Rel 15 MG TABLET PO PRN ×2 (07:07→16:36)
[2021-07-10] MEDS: DilTIAZem CD (24hr) 240 MG CAP.ER.24H PO SCH (08:37)
[2021-07-10] MEDS: polyethylene glycoL 3350 17 GM POWD.PACK PO SCH (08:37)
[2021-07-10] MEDS: Sennosides/Docusate Sodium TABLET PO SCH ×2 (08:37→20:28)
[2021-07-10] MEDS: Nicotine 7 MG PATCH.TD24 TD SCH (08:38)
[2021-07-10] MEDS ORDERED: polyethylene glycoL 3350 17 GM POWD.PACK PO PRN (10:55)
[2021-07-10] MEDS: *HR* Rivaroxaban 10 MG TABLET PO SCH (16:36)
[2021-07-11 05:51] LABS: Basophils % 0.2 %; Mean Platelet Volume 9.2 fL (9.4-12.4)
[2021-07-11 05:52] LABS: Eosinophils # 0.1 K/mcL (0.0-0.6); Eosinophils % 0.8 %; Hematocrit 25.9 % (37.5-50.1); Hemoglobin 7.6 g/dL (12.9-16.9); Immature Granulocytes % 0.8 % (0-4); Lymphocytes # 0.6 K/mcL (0.6-4.6); Lymphocytes % 8.9 %; Mean Corpuscular HGB Conc 29.3 g/dL (31.6-35.5); Mean Corpuscular Hemoglobin 27.7 pg (28.0-33.3); Mean Corpuscular Volume 94.5 fL (83.0-100.0); Monocytes # 0.8 K/mcL (0.0-1.3); Monocytes % 12.9 %; Neutrophils # 4.7 K/mcL (1.6-8.9); Platelet Count 232 K/mcL (140-400); Red Blood Count 2.74 M/mcL (4.19-5.50); Red Cell Distribution Width 16.7 % (11.5-14.5); Segmented Neutrophils % 76.4 %; White Blood Count 6.2 K/mcL (4.3-11.1)
[2021-07-11 06:09] LABS: Calcium 10.6 mg/dL (8.6-10.3); Potassium 4.9 mEq/L (3.5-5.1)
[2021-07-11 06:21] LABS: Anisocytosis 1+ (Not Present); Hypochromasia Present (Not Present); Platelet Estimate Normal (Normal)
[2021-07-11 09:35] VITALS: PULSE 88
[2021-07-11] MEDS: Nicotine 7 MG PATCH.TD24 TD SCH (10:14)
[2021-07-11] MEDS: DilTIAZem CD (24hr) 240 MG CAP.ER.24H PO SCH (10:14)
[2021-07-11] MEDS: Sennosides/Docusate Sodium TABLET PO SCH (10:17)
[2021-07-11 11:03] VITALS: BP 114/73; TEMP 97.9; O2SAT 97
== END 2021-07-11 13:11 | disposition hospice, home (50) | DRG 641 ==
LOC: EMEROOARM 12:17 → 2ANU 12:17 → SUATTDRO 16:59 → 2ANU 18:24
PROVIDERS: ADMIT Internal Medicine; ATTEND Internal Medicine